=== PATIENT | female | born 2000 | race African-American/Black ===

== ENCOUNTER 2018-10-28 16:02 | Emergency (ER) | payer MEDICAID ==
--- NOTE | 2018-10-28 19:54 | EDM.PDOC ---
ED HPI GENERAL MEDICAL PROBLEM - General Chief Complaint: General Stated Complaint: BODY PAIN Time Seen by Provider: 10/28/18 18:07 Source of Information: Reports: Patient History Limitations: Reports: No Limitations - History of Present Illness INITIAL COMMENTS - FREE TEXT/NARRATIVE: The patient presents with vaginal bleeding, body aches, weight gain and irritability. This has been going on for a few days. She had her cycle earlier in the month but she started bleeding last night again. She is worried she may be . She has no fever, chills, cough, chest pain, shortness of breath, nausea or vomiting. She also has some lower abdominal pain. Onset: Gradual Duration: Day(s): Location: Reports: Generalized Quality: Reports: Ache Severity: Moderate Improves with: Reports: None Worsens with: Reports: None Associated Symptoms: Reports: No Other Symptoms Left Abdomen Pain Score (Numeric/FACES): 7 - Related Data Home Meds: Home Meds . [No Known Home Meds] 10/28/18 [History] Past Medical History - Past Health History Medical/Surgical History: Denies Medical/Surgical History Social & Family History - Family History Family Medical History: Noncontributory - Tobacco Use Smoking Status *Q: Never Smoker Second Hand Smoke Exposure: No - Caffeine Use Caffeine Use: Reports: Coffee, Soda - Recreational Drug Use Recreational Drug Use: No ED ROS GENERAL - Review of Systems Review Of Systems: See Below Constitutional: Reports: No Symptoms HEENT: Reports: No Symptoms Respiratory: Reports: No Symptoms Cardiovascular: Reports: No Symptoms Endocrine: Reports: No Symptoms GI/Abdominal: Reports: No Symptoms : Reports: Other (Vaginal bleeding) Musculoskeletal: Reports: Muscle Pain Skin: Reports: No Symptoms ED EXAM, GENERAL - Physical Exam Exam: See Below Exam Limited By: No Limitations General Appearance: Alert, No Apparent Distress Ears: Normal External Exam Nose: Normal Inspection Head: Atraumatic, Normocephalic Neck: Normal Inspection Respiratory/Chest: No Respiratory Distress, Lungs Clear, Normal Breath Sounds Cardiovascular: Regular Rate, Rhythm, No Edema, No Murmur GI/Abdominal: Soft, Non-Tender, No Organomegaly, No Mass Course - Vital Signs Last Recorded V/S: Last Vital Signs Temp 97.4 F 10/28/18 17:45 Pulse 50 L 10/28/18 17:45 Resp 16 10/28/18 17:45 BP 148/102 H 10/28/18 17:45 Pulse Ox 100 10/28/18 17:45 - Orders/Labs/Meds Orders: Active Orders 24 hr Category Date Time Status UA W/MICROSCOPIC [URIN] Stat Lab 10/28/18 18:25 Ordered Labs: Laboratory Tests 10/28/18 10/28/18 10/28/18 Range/Units 18:47 18:47 18:47 WBC 7.87 (3.98-10.04) K/mm3 RBC 4.76 (3.98-5.22) M/mm3 Hgb 14.6 (11.2-15.7) gm/L Hct 42.4 (34.1-44.9) % MCV 89.1 (79.4-94.8) fl MCH 30.7 (25.6-32.2) pg MCHC 34.4 (32.2-35.5) g/dl RDW Std Deviation 44.5 (36.4-46.3) fL Plt Count 411 H (182-369) K/mm3 MPV 10.2 (9.4-12.3) fl Neut % (Auto) 60.1 (34.0-71.1) % Lymph % (Auto) 31.3 (19.3-51.7) % [place] % (Auto) 7.0 (4.7-12.5) % Eos % (Auto) 0.8 (0.7-5.8) Baso % (Auto) 0.5 (0.1-1.2) % Neut # (Auto) 4.74 (1.56-6.13) K/mm3 Lymph # (Auto) 2.46 (1.18-3.74) K/mm3 [place] # (Auto) 0.55 H (0.24-0.36) K/mm3 Eos # (Auto) 0.06 (0.04-0.36) K/mm3 Baso # (Auto) 0.04 (0.01-0.08) K/mm3 Sodium 140 (136-145) mEq/L Potassium 4.5 (3.5-5.1) mEq/L Chloride 106 (98-107) mEq/L Carbon Dioxide 25 (21-32) mEq/L Anion Gap 13.5 (5-15) BUN 10 (7-18) mg/dL Creatinine 1.1 H (0.55-1.02) mg/dL Est Cr Clr Drug Dosing 85.26 mL/min Estimated GFR (MDRD) > 60 (>60) mL/min BUN/Creatinine Ratio 9.1 L (14-18) Glucose 93 (74-106) mg/dL Calcium 9.1 (8.5-10.1) mg/dL Total Bilirubin 1.0 (0.2-1.0) mg/dL AST 24 (15-37) U/L ALT 30 (14-59) U/L Alkaline Phosphatase 91 (46-116) U/L Total Protein 7.9 (6.4-8.2) g/dl Albumin 3.8 (3.4-5.0) g/dl Globulin 4.1 gm/dL Albumin/Globulin Ratio 0.9 L (1-2) TSH 3rd Generation 0.664 (0.516-4.13) uIU/mL HCG, Qual Negative (NEGATIVE) - Re-Assessments/Exams Free Text/Narrative Re-Assessment/Exam: 10/28/18 19:52 Her CBC looks good. Her creatinine was slightly elevated at 1.1. Her TSH was negative. Her HCG was negative. I will discharge her home. Departure - Departure Time of Disposition: 20:00 Disposition: Home, Self-Care 01 Condition: Good Clinical Impression: Vaginal bleeding - Discharge Information *PRESCRIPTION DRUG MONITORING PROGRAM REVIEWED*: Not Applicable *COPY OF PRESCRIPTION DRUG MONITORING REPORT IN PATIENT ALEKSANDR: Not Applicable Referrals: PCP,None [Primary Care Provider] - Additional Instructions: Go home and take tylenol and mortin for pain. Follow up with your doctor as needed. - My Orders Last 24 Hours: My Active Orders 10/28/18 18:25 UA W/MICROSCOPIC [URIN] Stat - Assessment/Plan Last 24 Hours: My Active Orders 10/28/18 18:25 UA W/MICROSCOPIC [URIN] Stat
== END 2018-10-28 20:00 | disposition home or self-care (01) ==
LOC: JD.ED 16:02
DX: N93.9 Abnormal uterine and vaginal bleeding, unspecified (principal)
CPT/HCPCS: 36415; 80053; 81001; 84443; 84703; 85025; 99282; 99283

== ENCOUNTER 2019-02-08 08:41 | Emergency (ER) | payer MEDICAID ==
--- NOTE | 2019-02-08 09:31 | EDM.PDOC ---
ED HPI GENERAL MEDICAL PROBLEM - General Chief Complaint: Back Pain or Injury Stated Complaint: BACK PAIN Time Seen by Provider: 02/08/19 09:14 Source of Information: Reports: Patient, RN Notes Reviewed - History of Present Illness INITIAL COMMENTS - FREE TEXT/NARRATIVE: 18-year-old female comes in with low back pain. She first injured her back about 2-3 weeks ago. 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 She states the pain has become much worse over the past several days to the point where it is hard for her to hand, left and do what she needs to do at the workplace. Can find positions of comfort. If she is standing still or walking carefully there's not much pain. There's been no radiation of pain down either leg. Or chills. No voiding symptomatology. No history of a fall or severe traumatic injury. 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 Bilateral Lower Back Pain Score (Numeric/FACES): 9 - Related Data Allergies Allergy/AdvReac Type Severity Reaction Status Date / Time No Known Allergies Allergy Verified 02/08/19 09:19 Home Meds: Home Meds Naproxen [Naprosyn] 500 mg PO Q12HR #14 tab 02/08/19 [Rx] Cyclobenzaprine [Flexeril] 10 mg PO TID PRN #15 tab 02/11/19 [Rx] oxyCODONE HCl/Acetaminophen [Percocet 5-325 mg Tablet] 1 - 2 each PO Q4H PRN # 14 tablet 02/11/19 [Rx] predniSONE [Deltasone] 20 mg PO BID #14 tablet 02/11/19 [Rx] Past Medical History - Past Health History Medical/Surgical History: Denies Medical/Surgical History Social & Family History - Family History Family Medical History: Noncontributory - Tobacco Use Smoking Status *Q: Current Every Day Smoker Years of Tobacco use: 2 Packs/Tins Daily: 0.5 Second Hand Smoke Exposure: No - Caffeine Use Caffeine Use: Reports: Coffee, Soda, Tea - Recreational Drug Use Recreational Drug Use: No ED ROS GENERAL - Review of Systems Review Of Systems: See Below Constitutional: Denies: Fever, Chills HEENT: Reports: No Symptoms Respiratory: Reports: No Symptoms Cardiovascular: Denies: Chest Pain GI/Abdominal: Denies: Abdominal Pain, Nausea, Vomiting Musculoskeletal: Reports: Back Pain, Other (back pain is worse with bending and motion, better to sit or lie still). Denies: Leg Pain Neurological: Denies: Numbness, Tingling, Weakness ED EXAM,LOWER BACK PAIN/INJURY - Physical Exam Exam: See Below General Appearance: Alert, No Apparent Distress Head: Atraumatic Neck: Supple Respiratory/Chest: No Respiratory Distress, Lungs Clear, Normal Breath Sounds Cardiovascular: Regular Rate, Rhythm GI/Abdominal: Non-Tender Back Exam: Paraspinal Tenderness. No: Vertebral Tenderness Extremities: Normal Inspection, Normal Range of Motion Neurological: Alert, No Motor/Sensory Deficits Course - Vital Signs Last Recorded V/S: Last Vital Signs Temp 98.3 F 02/08/19 09:10 Pulse 67 02/08/19 09:10 Resp 18 02/08/19 09:10 BP 143/85 H 02/08/19 09:10 Pulse Ox 98 02/08/19 09:10 Departure - Departure Time of Disposition: 09:29 Disposition: Home, Self-Care 01 Condition: Fair Clinical Impression: Low back strain - Discharge Information Prescriptions: Naproxen [Naprosyn] 500 mg PO Q12HR #14 tab Instructions: Low Back Sprain, Back Injury Prevention Referrals: PCP,None [Primary Care Provider] - Forms: ED Department Discharge, ED Return to Work/School Form Additional Instructions: Rest back, no heavy lifting, Naprosyn 500 mg twice daily for pain and inflammation, you may take Tylenol in addition up to 3 times daily for extra pain relief. Alternate ice and heat as needed. Physical therapy, contact physical therapy today for next available appointment. Follow-up with a clinic provider in about one week for recheck, further treatment as needed. Call [phone] for appointment.
== END 2019-02-08 10:04 | disposition home or self-care (01) ==
LOC: JD.ED 08:41
DX: S39.012A Strain of muscle, fascia and tendon of lower back, initial encounter (principal); F17.210 Nicotine dependence, cigarettes, uncomplicated; X58.XXXA Exposure to other specified factors, initial encounter
CPT/HCPCS: 99283

== ENCOUNTER 2019-02-11 14:10 | Emergency (ER) | payer MEDICAID ==
--- NOTE | 2019-02-11 14:32 | EDM.PDOC ---
ED HPI GENERAL MEDICAL PROBLEM - General Chief Complaint: Back Pain or Injury Stated Complaint: BACK PAIN Time Seen by Provider: 02/11/19 14:23 Source of Information: Reports: Patient History Limitations: Reports: No Limitations - History of Present Illness INITIAL COMMENTS - FREE TEXT/NARRATIVE: 18-year-old female of -[place] ancestry presents to the ED with gradually worsening low back pain. 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 She can't stand fully erect as this makes the pain much worse as it would when the facet joints from closer together. She can't state the one side is necessarily worsening other new is no radiculopathy into either buttock or lower extremity. She states that the medication that Dr. Dugan prescribed which is Naprosyn is making her vomit about a half hour after eating even a good meal. Onset: Gradual Onset Date: 02/06/19 Duration: Day(s):, Getting Worse Location: Reports: Back (Diffuse low back pain) Quality: Reports: Ache, Throbbing Severity: Moderate (810) Improves with: Reports: Rest (Leaning forward on her knees takes some of the pain away. 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.) Bilateral Lower Back Pain Score (Numeric/FACES): 9 - Related Data Allergies Allergy/AdvReac Type Severity Reaction Status Date / Time No Known Allergies Allergy Verified 02/08/19 09:19 Home Meds: Home Meds Naproxen [Naprosyn] 500 mg PO Q12HR #14 tab 02/08/19 [Rx] Cyclobenzaprine [Flexeril] 10 mg PO TID PRN #15 tab 02/11/19 [Rx] oxyCODONE HCl/Acetaminophen [Percocet 5-325 mg Tablet] 1 - 2 each PO Q4H PRN # 14 tablet 02/11/19 [Rx] predniSONE [Deltasone] 20 mg PO BID #14 tablet 02/11/19 [Rx] Past Medical History - Past Health History Medical/Surgical History: Denies Medical/Surgical History Social & Family History - Family History Family Medical History: Noncontributory - Caffeine Use Caffeine Use: Reports: Coffee, Soda, Tea - Living Situation & Occupation Living situation: Reports: Single Occupation: Employed ED ROS GENERAL - Review of Systems Review Of Systems: See Below Constitutional: Reports: Malaise, Fatigue. Denies: Fever, Chills HEENT: Reports: No Symptoms (From not sleeping very well.) Respiratory: Reports: No Symptoms Cardiovascular: Reports: No Symptoms Endocrine: Reports: Fatigue GI/Abdominal: Reports: No Symptoms : Reports: No Symptoms Musculoskeletal: Reports: Back Pain Skin: Reports: No Symptoms (Diffuse low back pain. Can say one side is worse than the other. No radiculopathy) Neurological: Reports: No Symptoms Psychiatric: Reports: No Symptoms Hematologic/Lymphatic: Reports: No Symptoms Immunologic: Reports: No Symptoms ED EXAM,LOWER BACK PAIN/INJURY - Physical Exam Exam: See Below Exam Limited By: No Limitations General Appearance: Alert, WD/WN, Moderate Distress Respiratory/Chest: No Respiratory Distress, Lungs Clear, Normal Breath Sounds, No Accessory Muscle Use, Chest Non-Tender Cardiovascular: Normal Peripheral Pulses, Regular Rate, Rhythm, No Edema, No Gallop, No Murmur, No Rub GI/Abdominal: Normal Bowel Sounds, Soft, Non-Tender, No Organomegaly, No Mass, Pelvis Stable, Other (Patient is mildly obese.) Back Exam: Muscle Spasm (Patient has paraspinal muscle spasm on the right side up to the thoracic [address] down to lumbar 3. There is much less spasm on the left side although she has pain starting at T12 and worsens down to lumbar 3 level. She has no evidence of sacroiliitis on either side) Extremities: Normal Inspection, Normal Range of Motion (.), Non-Tender, Joint Swelling Neurological: Alert, Normal Mood/Affect, Normal Dorsiflexion, CN II-XII Intact. No: Straight Leg Raise (L), Straight Leg Raise (R) Psychiatric: Normal Affect, Normal Mood Skin Exam: Warm, Dry, Intact, Normal Color, No Rash Course - Vital Signs Last Recorded V/S: Last Vital Signs Temp 36.6 C 02/11/19 14:27 Pulse 62 02/11/19 14:27 Resp 20 02/11/19 14:27 BP 152/80 H 02/11/19 14:27 Pulse Ox 99 02/11/19 14:27 - Radiology Interpretation Free Text/Narrative:: 18-year-old female presents to the ED with severe low back pain. Exam reveals marked right sided paraspinal muscle spasm from thoracic 6 down to lumbar 5. Point of maximal tenderness is actually the L3-L4 facet joint. There is much less muscle spasm on the left side but point of maximal tenderness also at the L3-L4 facet joint. Going to x-ray her back with AP and lateral views. She will need something to control her pain and will discuss physiotherapy versus chiropractic manipulation. - Re-Assessments/Exams Free Text/Narrative Re-Assessment/Exam: 02/11/19 15:05: X-rays of the lumbar spine reveals increased lordotic curvature of the lumbar spine with some sclerosis at the L3-L4 facet joint appreciated. There is no abnormalities of the bones themselves. No fractures or bony abdomen maladies appreciated. I'm going to send the patient physiotherapy for work hardening program. She did not seem to keep be keen to go to chiropractor which might have given her a little bit quicker relief. Note given to excuse her from the work place for the rest of this week. I will place her on Deltasone 20 mg twice daily with breakfast and supper for 7 days. She is to stop the Naprosyn since it is causing nausea and vomiting. I will not place her on a any further anti-inflammatory. Placed on Percocet tabs 5/3/25 milligrams one or 2 every 4-6 hours for pain relief 14 tabs. Flexeril 10 mg every 8 hours as needed for relief of muscle spasm. I believe work hardening program is in her best interest to go prevent future back injury. Departure - Departure Time of Disposition: 15:00 Disposition: Home, Self-Care 01 Condition: Fair Clinical Impression: Acute myofascial strain of lumbar region Qualifiers: Encounter type: subsequent encounter Qualified Code(s): S39.012D - Strain of muscle, fascia and tendon of lower back, subsequent encounter - Discharge Information *PRESCRIPTION DRUG MONITORING PROGRAM REVIEWED*: No *COPY OF PRESCRIPTION DRUG MONITORING REPORT IN PATIENT ALEKSANDR: No Prescriptions: Cyclobenzaprine [Flexeril] 10 mg PO TID PRN #15 tab PRN Reason: Muscle Spasm oxyCODONE HCl/Acetaminophen [Percocet 5-325 mg Tablet] 1 - 2 each PO Q4H PRN # 14 tablet PRN Reason: pain relief. predniSONE [Deltasone] 20 mg PO BID #14 tablet Instructions: Muscle Strain, [id number], Pain Medicine Instructions, Easy-to- Read, Low Back Strain Rehab-SportsMed Referrals: PCP,None [Primary Care Provider] - Forms: ED Department Discharge, ED Return to Work/School Form Additional Instructions: Evaluation the emergency room today in regards to persistent low back pain. On examination there is significant right-sided paraspinal muscle spasm from thoracic 6 which is up near shoulder blade all the way down to your lower back. Point of maximal tenderness is at the L3 L4 facet joint both sides of your back. There is much less spasm on the left side of your back. X-rays of the back show increased lordotic curvature of the lower spine posture. Means that we need a program to strengthen your abdominal muscles and core muscles to try prevent back injury from reoccurring. I would suggest a consultation with physical therapy to help your back get back in shape and also exercise program that you could do at home to prevent a future back injury. Will make arrangements for them to call you to set up an appointment tomorrow probably. Time no further use of Naprosyn since is making her sick to her stomach. Replaced with Deltasone 20 mg with breakfast and supper taking the first and tonight at supper time. Does this twice daily for 7 days. May use Percocet tabs 5/325 mg one or 2 every 4-6 hours as needed for relief of pain. They'll see us Flexeril 10 mg tablet every 8 hours as necessary for relief of muscle spasm. Often these can make it quite tired I would suggest trying the first one at bedtime tonight. No will be given to excuse her from work until Monday this week tentatively returning on Monday.
--- NOTE | 2019-02-11 15:11 | CR ---
Lumbar spine: AP and lateral views of the lumbar spine were obtained. Comparison: No previous lumbar spine imaging. Vertebral body heights and disc spaces are maintained. Pedicles are intact. Transverse and spinous processes are intact. No subluxation or fracture is seen. Impression: 1. No abnormality is appreciated on two-view lumbar spine exam. Diagnostic code #1
== END 2019-02-11 15:13 | disposition home or self-care (01) ==
LOC: JD.ED 14:10
DX: S39.012A Strain of muscle, fascia and tendon of lower back, initial encounter (principal); X58.XXXA Exposure to other specified factors, initial encounter
CPT/HCPCS: 72100; 72100-26; 99283-25

== ENCOUNTER 2019-06-04 15:55 | Emergency (ER) | payer MEDICAID ==
[2019-06-04] MEDS ORDERED: Sodium Chloride 0.9% 10 ML Syringe FLUSH PRN (16:27)
[2019-06-04] MEDS ORDERED: diphenhydrAMINE 50 MG/ML SDV IVPUSH ONE (16:28)
[2019-06-04] MEDS ORDERED: Ketorolac 30 MG/ML SDV IVPUSH ONE (16:28)
[2019-06-04] MEDS ORDERED: Metoclopramide 10 MG/2 ML SDV IVPUSH ONE (16:28)
[2019-06-04] MEDS ORDERED: HYDROmorphone 1 MG/ML Syringe IVPUSH ONE (17:46)
--- NOTE | 2019-06-04 17:50 | CT ---
Head CT Technique: Multiple axial sections through the brain were obtained. Intravenous contrast was not utilized. Comparison: No prior intracranial imaging is available. Findings: Ventricles along with basal cisterns and sulci over the convexities are within normal limits for the patient's age. Scattered dural calcifications are seen which are believed to be incidental. Small hyperdense area is noted near the foramen magnum most likely due to small colloid cyst measuring 4.8 mm. This causes no obstruction of the lateral ventricles. No abnormal parenchymal densities are seen. No evidence of intracranial hemorrhage is seen. No midline shift or mass-effect is seen. Bone window settings were reviewed. Visualized paranasal sinuses and mastoid sinuses show nothing acute. No acute calvarial abnormality is appreciated. Impression: 1. 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 2. Nothing acute is appreciated on noncontrast head CT study. Diagnostic code #2 This report was dictated in [place] Standard Time
--- NOTE | 2019-06-04 18:00 | EDM.PDOC ---
ED HPI GENERAL MEDICAL PROBLEM - General Chief Complaint: General Stated Complaint: HEADACHE Time Seen by Provider: 06/04/19 16:08 Source of Information: Reports: Patient History Limitations: Reports: No Limitations - History of Present Illness INITIAL COMMENTS - FREE TEXT/NARRATIVE: The patient presents with a headache and low back pain. This has been going on for a few months. She says the headache has only been going on for a few days. She has no numbness or weakness. She has no fever or chills. She did try some PT but that is not helping. She has no bowel or bladder problems. She has no abdominal pain, nausea or vomiting. She has no dysuria. Onset: Gradual Duration: Week(s): Location: Reports: Head, Back Quality: Reports: Sharp Severity: Moderate Improves with: Reports: Immobilization Worsens with: Reports: Movement Context: Denies: Trauma Associated Symptoms: Reports: No Other Symptoms Back Pain Score (Numeric/FACES): 10 Headache Pain Score (Numeric/FACES): 9 - Related Data Allergies Allergy/AdvReac Type Severity Reaction Status Date / Time No Known Allergies Allergy Verified 06/04/19 16:07 Home Meds: Home Meds Naproxen [Naprosyn] 500 mg PO TID 06/04/19 [History] traMADol [Ultram] 50 - 100 mg PO Q6H PRN #20 tab 06/04/19 [Rx] Past Medical History - Past Health History Medical/Surgical History: Denies Medical/Surgical History Musculoskeletal History: Reports: Back Pain, Chronic Social & Family History - Family History Family Medical History: Noncontributory - Tobacco Use Smoking Status *Q: Current Every Day Smoker Years of Tobacco use: 4 Packs/Tins Daily: 0.5 - Caffeine Use Caffeine Use: Reports: Tea - Recreational Drug Use Recreational Drug Use: No - Living Situation & Occupation Living situation: Reports: Single Occupation: Employed ED ROS GENERAL - Review of Systems Review Of Systems: See Below Constitutional: Reports: No Symptoms HEENT: Reports: No Symptoms Respiratory: Reports: No Symptoms Cardiovascular: Reports: No Symptoms Endocrine: Reports: No Symptoms GI/Abdominal: Reports: No Symptoms : Reports: No Symptoms Musculoskeletal: Reports: Back Pain Neurological: Reports: Headache ED EXAM, GENERAL - Physical Exam Exam: See Below Exam Limited By: No Limitations General Appearance: Alert, No Apparent Distress Ears: Normal External Exam Nose: Normal Inspection Head: Atraumatic, Normocephalic Neck: Normal Inspection Respiratory/Chest: No Respiratory Distress, Lungs Clear, Normal Breath Sounds Cardiovascular: Regular Rate, Rhythm, No Edema, No Murmur GI/Abdominal: Soft, Non-Tender, No Organomegaly, No Mass Back Exam: Normal Inspection Extremities: Normal Inspection Neurological: Alert, Oriented, No Motor/Sensory Deficits Course - Vital Signs Last Recorded V/S: Last Vital Signs Temp 98.1 F 06/04/19 16:03 Pulse 64 06/04/19 16:03 Resp 18 06/04/19 16:03 BP 149/119 H 06/04/19 16:03 Pulse Ox 99 06/04/19 16:03 - Orders/Labs/Meds Orders: Active Orders 24 hr Category Date Time Status Peripheral IV Care [RC] . DIRECTED Care 06/04/19 16:27 Active Lumbar Spine 2 or 3V [CR] Stat Exams 06/04/19 17:10 Taken Sodium Chloride 0.9% [Saline Flush] Med 06/04/19 16:27 Active 10 ml FLUSH ASDIRECTED PRN Peripheral IV Insertion Adult [OM.PC] Routine Oth 06/04/19 16:27 Ordered Medication Orders Sodium Chloride (Saline Flush) 10 ml FLUSH ASDIRECTED PRN PRN Reason: Keep Vein Open Last Admin: 06/04/19 16:47 Dose: 10 ml Meds: Medications Generic Name Dose Route Start Last Admin Trade Name Freq PRN Reason Stop Dose Admin Sodium Chloride 10 ml 06/04/19 16:27 06/04/19 16:47 Saline Flush FLUSH 10 ml ASDIRECTED PRN Administration Keep Vein Open Discontinued Medications Generic Name Dose Route Start Last Admin Trade Name Freq PRN Reason Stop Dose Admin Diphenhydramine HCl 50 mg 06/04/19 16:28 06/04/19 16:46 Benadryl IVPUSH 06/04/19 16:29 50 mg ONETIME ONE Administration Hydromorphone HCl 1 mg 06/04/19 17:46 06/04/19 18:04 Dilaudid IVPUSH 06/04/19 17:47 1 mg ONETIME ONE Administration Ketorolac Tromethamine 30 mg 06/04/19 16:28 06/04/19 16:46 Toradol IVPUSH 06/04/19 16:29 30 mg ONETIME ONE Administration Metoclopramide HCl 10 mg 06/04/19 16:28 06/04/19 16:46 Reglan IVPUSH 06/04/19 16:29 10 mg ONETIME ONE Administration - Re-Assessments/Exams Free Text/Narrative Re-Assessment/Exam: 06/04/19 18:38 I ordered an IV saline lock, reglan 10mg IV, toradol 30mg IV, benadryl 50mg IV, CT of her head and x-ray of her lumbar spine. The CT of her head looks good. The x-ray of her lumbar spine shows no acute changes. I will discharge her home. Departure - Departure Time of Disposition: 18:45 Disposition: Home, Self-Care 01 Condition: Good Clinical Impression: Low back pain Qualifiers: Chronicity: chronic Back pain laterality: bilateral Sciatica presence: without sciatica Qualified Code(s): M54.5 - Low back pain; G89.29 - Other chronic pain Headache Qualifiers: Headache type: unspecified Headache chronicity pattern: chronic headache Intractability: not intractable Qualified Code(s): R51 - Headache - Discharge Information *PRESCRIPTION DRUG MONITORING PROGRAM REVIEWED*: No *COPY OF PRESCRIPTION DRUG MONITORING REPORT IN PATIENT ALEKSANDR: No Prescriptions: traMADol [Ultram] 50 - 100 mg PO Q6H PRN #20 tab PRN Reason: Pain Referrals: PCP,None [Primary Care Provider] - Yahaira Gaston NP [Ordering Only Provider] - 1 Week Forms: ED Department Discharge Additional Instructions: Ice the areas that hurt. Take motrin or tylenol as needed for pain. If that does not work, take the ultram. Please return if you are worse. Sepsis Event Note - Evaluation Sepsis Screening Result: No Definite Risk - Focused Exam Vital Signs: Vital Signs Temp Pulse Resp BP Pulse Ox 06/04/19 16:03 98.1 F 64 18 149/119 H 99 Date Exam was Performed: 06/04/19 Time Exam was Performed: 18:34 - My Orders Last 24 Hours: My Active Orders 06/04/19 16:27 Peripheral IV Care [RC] . DIRECTED Sodium Chloride 0.9% [Saline Flush] 10 ml FLUSH ASDIRECTED PRN Peripheral IV Insertion Adult [OM.PC] Routine 06/04/19 17:10 Lumbar Spine 2 or 3V [CR] Stat - Assessment/Plan Last 24 Hours: My Active Orders 06/04/19 16:27 Peripheral IV Care [RC] . DIRECTED Sodium Chloride 0.9% [Saline Flush] 10 ml FLUSH ASDIRECTED PRN Peripheral IV Insertion Adult [OM.PC] Routine 06/04/19 17:10 Lumbar Spine 2 or 3V [CR] Stat
--- NOTE | 2019-06-05 07:43 | CR ---
Lumbar spine: AP and lateral views of the lumbar spine were obtained. Comparison: Prior lumbar spine plain film study of 02/11/19 is available. Vertebral body heights and disc spaces are maintained. Pedicles are intact. No subluxation or fracture is seen. Transverse and spinous processes are intact. Rudimentary rib is noted at T12 on the right side which is felt to be a normal variant. Impression: 1. Nothing acute is seen. 2. No change from previous study is identified. Diagnostic code #2 This report was dictated in [place] Standard Time
== END 2019-06-04 19:11 | disposition home or self-care (01) ==
LOC: JD.ED 15:55
DX: M54.5 Low back pain (principal); G89.29 Other chronic pain; R51 Headache; F17.210 Nicotine dependence, cigarettes, uncomplicated
CPT/HCPCS: 70450; 72100; 96374; 96375; 99284; J1170; J1200; J1885; J2765

== ENCOUNTER 2023-06-15 23:09 | Inpatient (IN) | payer MEDICAID ==
[2023-06-16] MEDS: Lactated Ringers 1,000 ML IV ONE (00:20)
[2023-06-16] MEDS ORDERED: Ampicillin 2 GM in Sodium Chloride 0.9% 100 ML IV ONE (01:30)
[2023-06-16] MEDS ORDERED: Oxytocin 10 Units/1 ML SDV ONE (01:50)
[2023-06-16] MEDS ORDERED: Lidocaine 1% 50 ML MDV ONE (02:07)
[2023-06-16] MEDS ORDERED: Acetaminophen 325 MG Tab PO PRN (02:21)
[2023-06-16] MEDS ORDERED: Docusate Sodium 100 MG Cap PO PRN (02:21)
[2023-06-16] MEDS: Benzocaine/Menthol 20%-0.5% Spray 78 GM Cannister TOP PRN (03:53)
[2023-06-16] MEDS: Witch Hazel Medicated Pads 40/Jar TOP PRN (03:53)
[2023-06-16] MEDS: Lidocaine 1% 50 ML MDV INJECT PRN (03:54)
[2023-06-16] MEDS: Oxytocin/Lactated Ringers 30 UNIT/500 ML BAG IV SCH (03:55)
[2023-06-16] MEDS: Ibuprofen 600 MG Tab PO PRN (04:33)
[2023-06-16 05:52] LABS: HEMATOCRIT 34.5 % (37.0-47.0); HEMOGLOBIN 11.7 gm/dl (12.0-16.0); MEAN CORPUSCULAR HGB CONC 33.9 g/dl (32.0-36.0); MEAN CORPUSCULAR VOLUME 91.3 fl (83.0-99.0); MEAN PLATELET VOLUME 9.6 fl (9.4-12.3); PLATELET COUNT,PLT 275 K/mm3 (150-400); RED BLOOD CELL COUNT 3.78 M/mm3 (4.10-5.30); WHITE BLOOD CELL COUNT,WBC 23.77 K/mm3 (3.9-11.3)
== END 2023-06-18 10:45 | disposition home or self-care (01) | DRG 807 ==
LOC: JD.OBCHECK 23:09 → JD.OB 23:14 → JD.OBCHECK 06-16 02:19 → OBSVTOIN 06-16 02:37 → JD.OB 06-16 02:38
PROVIDERS: ADMIT Obstetrics & Gynecology; ATTEND Obstetrics & Gynecology
PROC: 10E0XZZ Delivery of Products of Conception, External Approach (ICD-10-PCS; principal; 2023-06-16)
PROC: 0HQ9XZZ Repair Perineum Skin, External Approach (ICD-10-PCS; 2023-06-16)
PROC: 10907ZC Drainage of Amniotic Fluid, Therapeutic from Products of Conception, Via Natural or Artificial Opening (ICD-10-PCS; 2023-06-16)
DX: O99.824 Streptococcus B carrier state complicating childbirth (principal); Z37.0 Single live birth; O99.334 Smoking (tobacco) complicating childbirth; F17.210 Nicotine dependence, cigarettes, uncomplicated; O62.3 Precipitate labor; O70.0 First degree perineal laceration during delivery; O69.81X0 Labor and delivery complicated by cord around neck, without compression, not applicable or unspecified; Z3A.37 37 weeks gestation of pregnancy
CPT/HCPCS: 36415; 59025; 59409; 85027; 86592; 86850; 86900; 86901; A9270-GY; J2001; J7120; J7999